=== PATIENT | male | born 1965 | race Caucasian/White ===

== ENCOUNTER 2024-06-01 19:19 | Emergency (ER) | payer OTHER ==
[~2024-06-01] VITALS: Ht 170.2 cm; Wt 60.9 kg
[~2024-06-01 19:19] MED LIST: BUPRENORPHINE1 EACH TD; CYCLOBENZAPRINE10 MG PO
[2024-06-01 19:45] LABS: BASOPHILS 3.2 % (0-2); EOSINOPHILS 0.2 % (0-6); HEMATOCRIT 48.9 % (35.0-50.0); HEMOGLOBIN 16.6 g/dL (12.0-18.0); LYMPHOCYTES 31.2 % (24-44); MCH 33.2 (27-36); MCHC 33.9 g/dl (30-36); MCV 97.8 fl (81-99); MONOCYTES 8.9 % (0-12); NEUTROPHILS 56.5 % (39-80); PLATELET COUNT 244 K/uL (140-440); RBC 4.99 M/ul (4.3-5.7); RDW 14.6 (10.5-15.0)
[2024-06-01 20:02] LABS: ALBUMIN 4.7 g/dL (3.4-5.0); ALBUMIN/GLOBULIN RATIO 1.12 (1.1-2.4); ANION GAP 22.2 (7-21); BILIRUBIN, TOTAL 0.9 ng/dL (0.2-1.0); CALCIUM 8.7 mg/dL (8.5-10.1); MAGNESIUM 2.1 mg/dL (1.8-2.4); POTASSIUM 4.2 mmol/L (3.5-5.1); PROTEIN, TOTAL 8.9 g/dL (6.4-8.2)
[2024-06-01] MEDS ORDERED: FOLIC ACID 1 MG/0.2 ML ML ONE (20:35)
[2024-06-01] MEDS ORDERED: MULTIVITAMINS 10 ML,FOLIC ACID 1 MG,THIAMINE HCL 100 MG in SODIUM CHLORIDE 0.9% 1,000 ML IV ONE (20:45)
[2024-06-01 20:57] LABS: BILIRUBIN, URINE NEGATIVE (negative); BLOOD/HGB, URINE SMALL (Negative); KETONE, URINE SMALL (Negative); LEUK ESTERASE, URINE NEGATIVE (negative); NITRITE, URINE NEGATIVE (negative)
[2024-06-01 21:12] LABS: AMPHETAMINES, URINE NEGATIVE (NEGATIVE); BARBITURATES, URINE NEGATIVE (NEGATIVE); BENZODIAZEPINE, URINE NEGATIVE (NEGATIVE); BUPRENORPHINE, URINE NEGATIVE (NEGATIVE); CANNABINOID, URINE POSITIVE (NEGATIVE); COCAINE, URINE NEGATIVE (NEGATIVE); CRYSTALS, URINE NONE SEEN (0-1+); ECSTASY, URINE NEGATIVE (NEGATIVE); EPITHELIAL CELLS, URINE SQUAMOUS 1+ /lpf (0-1+); FENTANYL, URINE NEGATIVE (NEGATIVE); METHADONE, URINE NEGATIVE (NEGATIVE); OPIATES, URINE NEGATIVE (NEGATIVE); OXYCODONE, URINE NEGATIVE (NEGATIVE); PHENCYCLIDINE, URINE NEGATIVE (NEGATIVE)
[2024-06-01 21:16] LABS: BACTERIA, URINE 1+ /hpf (negative); CASTS, URINE HYALINE 2+ \\lpf; COLLECTION TYPE, URINE CLEAN CATCH; REFLEX CULTURE, URINE No (No)
[2024-06-01 23:06] VITALS: BP 143/64
--- NOTE | 2024-06-03 18:39 | EKG ---
[facility] [address] [place], [place] [address] Signed Sinus tachycardia Otherwise normal ECG No previous ECGs available Confirmed by Abel Retana MD ([id number]) on 06/03/2024 6:38:52 PM Electronically Signed By: ABEL RETANA MD 06/03/24 1839 PATIENT NAME: TOMMY MELTON Electrocardiogram DATE OF : 63 PHYSICIAN: ABEL RETANA MD REPORT #: [id number] REPORT IS CONFIDENTIAL AND NOT TO BE RELEASED WITHOUT AUTHORIZATION
== END 2024-06-01 23:06 | disposition home or self-care (01) ==
LOC: ED 19:19
PROVIDERS: Internal Medicine
DX: E86.0 Dehydration (principal); F10.129 Alcohol abuse with intoxication, unspecified; Y90.8 Blood alcohol level of 240 mg/100 ml or more
CPT/HCPCS: 36415; 71045; 80053; 80307; 81001; 83690; 83735; 84484; 85025; 93005; 93010; 96374; 99284-25; G0480; J3411; J7030

== ENCOUNTER 2025-03-29 12:10 | Emergency (ER) | payer OTHER ==
[~2025-03-29] VITALS: Ht 170.2 cm; Wt 75.0 kg
[~2025-03-29 12:10] MED LIST changes: +CHLORDIAZEPOXID25 MG PO; +ONDANSETRON ODT8 MG SL
[2025-03-29] MEDS ORDERED: OLANZapine 10 MG TABDIS PO ONE (13:00)
[2025-03-29 13:30] LABS: BASOPHILS 0.9 % (0.2-1.2); EOSINOPHILS 0.6 % (0.8-7.0); LYMPHOCYTES 16.7 % (21.8-53.1); MCH 30.1 PG (25.7-32.2); MCHC 32.5 g/dL (32.3-36.5); MCV 92.7 fL (79.0-92.2); MONOCYTES 9.0 % (5.3-12.2); NEUTROPHILS 72.4 % (34.0-67.9); RBC 4.52 M/uL (4.63-6.08)
[2025-03-29] MEDS ORDERED: HALOPERIDOL LACTATE 5 MG/ML VIAL IM ONE (13:30)
[2025-03-29] MEDS ORDERED: LORazepam 2 MG/ML VIAL IM ONE (13:30)
[2025-03-29 13:40] LABS: AMPHETAMINES, URINE NEGATIVE (NEGATIVE); BARBITURATES, URINE NEGATIVE (NEGATIVE); BENZODIAZEPINE, URINE NEGATIVE (NEGATIVE); CANNABINOID, URINE POSITIVE (NEGATIVE); COCAINE, URINE NEGATIVE (NEGATIVE); ECSTASY, URINE NEGATIVE (NEGATIVE); FENTANYL, URINE NEGATIVE (NEGATIVE); METHADONE, URINE NEGATIVE (NEGATIVE); OPIATES, URINE NEGATIVE (NEGATIVE); OXYCODONE, URINE NEGATIVE (NEGATIVE); PHENCYCLIDINE, URINE NEGATIVE (NEGATIVE)
[2025-03-29 13:54] LABS: ALCOHOL, MEDICAL <3 ng/dL (<3); ALT (SGPT) 83 U/L (14-59); AST (SGOT) 96 U/L (15-37); GLOMERULAR FILTRATION RATE,EST 102 mL/min (>60); PROTEIN, TOTAL 7.7 g/dL (6.4-8.2); TSH, 3RD GENERATION 0.768 uIU/mL (0.358-3.740); UREA NITROGEN 11 mg/dL (7-18)
[2025-03-30] MEDS ORDERED: OLANZapine 10 MG TAB PO SCH (21:00)
[2025-03-30] MEDS ORDERED: DIVALPROEX SODIUM 250 MG TABLET.DR PO SCH (21:00)
--- NOTE | 2025-03-31 12:57 | EKG ---
[facility] [address] [place] [address] Signed Normal sinus rhythm Normal ECG When compared with ECG of 15-JUN-2024 17:34, Vent. rate has decreased BY 33 BPM Nonspecific T wave abnormality no longer evident in Anterolateral leads QT has shortened Confirmed by Abel Retana MD ([id number]) on 03/31/2025 12:57:50 PM Electronically Signed By: ABEL RETANA MD 03/31/25 1257 PATIENT NAME: TOMMY MELTON Electrocardiogram DATE OF : 63 PHYSICIAN: ABEL RETANA MD REPORT #: [id number] REPORT IS CONFIDENTIAL AND NOT TO BE RELEASED WITHOUT AUTHORIZATION
[2025-03-31 19:44] LABS: BLOOD/HGB, URINE NEGATIVE (Negative); KETONE, URINE NEGATIVE (Negative); LEUK ESTERASE, URINE NEGATIVE (negative); NITRITE, URINE NEGATIVE (negative)
[2025-03-31 19:54] LABS: BACTERIA, URINE NONE SEEN /hpf (negative); CASTS, URINE NONE SEEN \\lpf; CRYSTALS, URINE NONE SEEN (0-1+); EPITHELIAL CELLS, URINE NONE SEEN /lpf (0-1+); REFLEX CULTURE, URINE No (No)
[2025-04-02 06:36] VITALS: BP 122/73
== END 2025-04-02 06:36 ==
LOC: ED 12:10
PROVIDERS: Emergency Medicine
DX: F29 Unspecified psychosis not due to a substance or known physiological condition (principal); Z79.899 Other long term (current) drug therapy
CPT/HCPCS: 36415; 80053; 80307; 81001; 84443; 85025; 93005; 93010; 96372; 99285; A9270; G0480; J1200; J1630; J2060

== ENCOUNTER 2025-04-06 12:18 | Emergency (ER) | payer OTHER ==
[~2025-04-06] VITALS: Ht 170.2 cm; Wt 75.0 kg
--- OUTSIDE RECORDS SUMMARY | 2025-04-06 12:24 | XMS ---
PreManage Notification: TOMMY MELTON Security Director Design Events No recent Security Events currently on file CRITERIA MET - [facility] - 2 Visits in 30 Days CARE PROVIDERS -, [facility] Dentist: Global Human Resources Director [facility] PHONE: [phone] - [place]- Dentist: Global Human Resources Director [facility] PHONE: [phone] [facility]: [facility] PHONE: Unknown JEREMIE WARD Physician Sterilizer Operator: Medical Current PHONE: Unknown FAUSTO MONROE [facility] Current PHONE: Unknown Lara Donald Manager Ob/Shirt Sorter Current PHONE: [phone] Mervat has no Care Guidelines for this patient. Esthel[place] VISIT COUNT (12 MO.) 4 [facility] TOTAL 4 NOTE: Visits indicate total known visits. ED/UCC VISIT TRACKING (12 MO.) 04/06/2025 12:18 [facility] [place] TYPE: Emergency COMPLAINT: - MEDICAL CLEARANCE 03/29/2025 12:10 [facility] [place] TYPE: Emergency COMPLAINT: - MEDICAL CLEARANCE DIAGNOSES: - Altered mental status, unspecified - Other intermediate school teacher (current) drug therapy - Unspecified psychosis not due to a substance or known physiological condition 06/15/2024 16:49 [facility] [place] TYPE: Emergency COMPLAINT: - SEIZURE LIKE ACTIVITY DIAGNOSES: - Alcohol dependence with withdrawal, unspecified - Hypokalemia - Hypomagnesemia - Other residential (current) drug therapy - Syncope and collapse - Unspecified convulsions 06/01/2024 19:22 [facility] [place] TYPE: Emergency COMPLAINT: - VOMITING/POSS DEHYDRATION DIAGNOSES: - Alcohol abuse with intoxication, unspecified - Blood alcohol level of 240 mg/100 ml or more - Dehydration - Unspecified abdominal pain INPATIENT VISIT TRACKING (12 MO.) No inpatient visits to display in this time frame [email or web address]
[2025-04-06] MEDS ORDERED: NORTRIPTYLINE H10 MG PO (12:31)
[2025-04-06 12:50] VITALS: BP 96/57
== END 2025-04-06 12:51 | disposition home or self-care (01) ==
LOC: ED 12:18
DX: S01.81XA Laceration without foreign body of other part of head, initial encounter (principal); R45.1 Restlessness and agitation; X58.XXXA Exposure to other specified factors, initial encounter
CPT/HCPCS: 12013; 99284

== ENCOUNTER 2025-04-08 16:30 | Emergency (ER) | payer OTHER ==
[~2025-04-08] VITALS: Ht 170.2 cm; Wt 75.0 kg
[~2025-04-08 16:30] MED LIST changes: +NORTRIPTYLINE H10 MG PO
--- OUTSIDE RECORDS SUMMARY | 2025-04-08 16:35 | XMS ---
PreManage Notification: TOMMY MELTON Security Fire Pilot Events No recent Security Events currently on file CRITERIA MET - [facility] - 2 Visits in 30 Days CARE PROVIDERS -, [facility] Dentist: Medical Laboratory Scientist [facility] PHONE: [phone] - [place]- Dentist: Medical Laboratory Scientist [facility] PHONE: [phone] [facility]/[place]: [facility] ([facility]) PHONE: Unknown JEREMIE WARD Physician Key Punch Teacher: Medical Current PHONE: Unknown FAUSTO MONROE [facility] Current PHONE: Unknown Lara Donald Assembler [employer] Ups/Quality Lead Current PHONE: [phone] Mervat has no Care Guidelines for this patient. Esthela VISIT COUNT (12 MO.) 5 [facility] TOTAL 5 NOTE: Visits indicate total known visits. ED/UCC VISIT TRACKING (12 MO.) 04/08/2025 16:32 [facility] [place] TYPE: Emergency COMPLAINT: - MEDICAL CLEARANCE 04/06/2025 12:18 [facility] [place] TYPE: Emergency COMPLAINT: - MEDICAL CLEARANCE 03/29/2025 12:10 [facility] [place] TYPE: Emergency COMPLAINT: - MEDICAL CLEARANCE DIAGNOSES: - Altered mental status, unspecified - Other dedicated intermodal truck driver (current) drug therapy - Unspecified psychosis not due to a substance or known physiological condition 06/15/2024 16:49 [facility] [place] TYPE: Emergency COMPLAINT: - SEIZURE LIKE ACTIVITY DIAGNOSES: - Alcohol dependence with withdrawal, unspecified - Hypokalemia - Hypomagnesemia - Other half-way (current) drug therapy - Syncope and collapse - Unspecified convulsions 06/01/2024 19:22 [facility] [place] TYPE: Emergency COMPLAINT: - VOMITING/POSS DEHYDRATION DIAGNOSES: - Alcohol abuse with intoxication, unspecified - Blood alcohol level of 240 mg/100 ml or more - Dehydration - Unspecified abdominal pain INPATIENT VISIT TRACKING (12 MO.) No inpatient visits to display in this time frame [email or web address]
[2025-04-08 17:21] LABS: BASOPHILS 0.5 % (0.2-1.2); EOSINOPHILS 0.5 % (0.8-7.0); LYMPHOCYTES 21.2 % (21.8-53.1); MCH 30.2 PG (25.7-32.2); MCHC 31.7 g/dL (32.3-36.5); MCV 95.3 fL (79.0-92.2); MONOCYTES 10.9 % (5.3-12.2); NEUTROPHILS 66.5 % (34.0-67.9); RBC 4.67 M/uL (4.63-6.08)
[2025-04-08 17:29] LABS: BLOOD/HGB, URINE NEGATIVE (Negative); KETONE, URINE NEGATIVE (Negative); LEUK ESTERASE, URINE NEGATIVE (negative); NITRITE, URINE NEGATIVE (negative)
[2025-04-08 17:44] LABS: AMPHETAMINES, URINE NEGATIVE (NEGATIVE); BARBITURATES, URINE NEGATIVE (NEGATIVE); BENZODIAZEPINE, URINE NEGATIVE (NEGATIVE); CANNABINOID, URINE POSITIVE (NEGATIVE); COCAINE, URINE NEGATIVE (NEGATIVE); ECSTASY, URINE NEGATIVE (NEGATIVE); FENTANYL, URINE NEGATIVE (NEGATIVE); METHADONE, URINE NEGATIVE (NEGATIVE); OPIATES, URINE NEGATIVE (NEGATIVE); OXYCODONE, URINE NEGATIVE (NEGATIVE); PHENCYCLIDINE, URINE NEGATIVE (NEGATIVE)
[2025-04-08 17:51] LABS: ALCOHOL, MEDICAL <3 ng/dL (<3); ALT (SGPT) 47 U/L (14-59); AST (SGOT) 30 U/L (15-37); GLOMERULAR FILTRATION RATE,EST 105 mL/min (>60); PROTEIN, TOTAL 8.2 g/dL (6.4-8.2); TSH, 3RD GENERATION 1.059 uIU/mL (0.358-3.740); UREA NITROGEN 6 mg/dL (7-18)
[2025-04-08] MEDS ORDERED: NICOTINE POLACRILEX 4 MG LOZENGE BUCCAL PRN (18:45)
[2025-04-08] MEDS ORDERED: AMITRIPTYLINE HCL 25 MG TAB PO SCH (23:35)
[2025-04-08] MEDS ORDERED: CYCLOBENZAPRINE HCL 10 MG TAB PO PRN (23:45)
[2025-04-09] MEDS ORDERED: LIDOCAINE HCL 4% 1 EACH PATCH TD SCH (04:00)
[2025-04-09] MEDS ORDERED: OLANZapine 10 MG TABDIS PO SCH (09:00)
[2025-04-09] MEDS ORDERED: LIDOCAINE PATCH REMOVAL 1 EA TD SCH (21:00)
[2025-04-10 06:40] VITALS: BP 143/95
== END 2025-04-10 06:40 ==
LOC: ED 16:30
PROVIDERS: Emergency Medicine
DX: F22 Delusional disorders (principal); R45.851 Suicidal ideations; Z79.899 Other long term (current) drug therapy
CPT/HCPCS: 36415; 80053; 80307; 81003; 84443; 85025; 99285; A9270; G0480